=== PATIENT | female | born 1990 | race African-American/Black ===

== ENCOUNTER 2018-06-09 03:42 | Emergency (ER) | payer SELFPAY ==
[~2018-06-09] VITALS: Ht 157.5 cm; Wt 43.5 kg
[2018-06-09 07:19] VITALS: BP 125/81
[2018-06-09] MEDS ORDERED: LIDOCAINE 1% HCL (LOCAL ANESTH.) INJ 20ML MDV ONE (07:41)
[2018-06-09] MEDS ORDERED: cefTRIAXone SOD 1,000 MG VL IM ONE (07:45)
== END 2018-06-09 07:54 | disposition home or self-care (01) ==
LOC: EDBD 03:47 → ER 03:47
DX: S16.1XXA Strain of muscle, fascia and tendon at neck level, initial encounter (principal); J03.90 Acute tonsillitis, unspecified; F17.210 Nicotine dependence, cigarettes, uncomplicated; X50.0XXA Overexertion from strenuous movement or load, initial encounter; Y93.89 Activity, other specified; Y99.8 Other external cause status; Y92.89 Other specified places as the place of occurrence of the external cause
CPT/HCPCS: 99283; J0696; J2001